=== PATIENT | male | born 1940 | race African-American/Black ===

== ENCOUNTER 2021-09-13 11:26 | Inpatient (IN) | payer OTHER ==
[2021-09-13] MEDS ORDERED: ACETAMINOPHEN 1000 MG/100 ML VIAL IVPB ONE (13:18)
[2021-09-13] MEDS ORDERED: ACETAMINOPHEN INJECTION 100 ML IVPB ONE (13:40)
[2021-09-13 14:17] LABS: BASO % 0.3 % (0-2.0); EOS % 0.1 % (0-4.5); HEMATOCRIT 31.8 % (35.4-49); HEMOGLOBIN 10.4 GM/dL (11.7-16.9); LYMPH % 5.7 % (8-40); MCH 29.1 pg (25.7-33.7); MCHC 32.8 g/dl (32.0-35.9); MEAN CELL VOLUME 88.9 fl (80-96); MEAN PLT VOLUME 8.7 fl (7.5-11.1); MONO % 5.4 % (3.8-10.2); NEUT % 88.5 % (42.8-82.8); PLATELET COUNT 320 10^3/uL (134-434); RBC 3.58 M/mm3 (4.00-5.60); RDW 19.1 % (11.9-15.9); WHITE BLOOD COUNT 14.1 K/mm3 (4.0-10.0)
[2021-09-13 14:19] LABS: VENOUS BASE EXCESS 2.7 mmol/L (-2-2); VENOUS O2 SATURATION 40.4 % (70-80); VENOUS PCO2 52.3 mmHg (38-52); VENOUS PH 7.361 (7.310-7.410)
[2021-09-13 14:34] LABS: INR 1.46 (0.83-1.09); PROTHROMBIN TIME (PATIENT) 16.4 SEC (9.7-13.0)
[2021-09-13 14:36] LABS: ACTIVATED PTT 31.5 SECONDS (25.2-36.5)
[2021-09-13 14:37] LABS: CHLORIDE 103 mmol/L (98-107); SODIUM 140 mmol/L (136-145)
[2021-09-13 14:39] LABS: MAGNESIUM 1.4 mg/dL (1.8-2.4)
[2021-09-13 14:40] LABS: ALBUMIN 2.1 g/dl (3.4-5.0); ANION GAP 10 MMOL/L (8-16); CALCIUM 9.2 mg/dL (8.5-10.1); CO2 27 mmol/L (21-32); GLUCOSE,RANDOM 146 mg/dL (74-106)
[2021-09-13 14:42] LABS: PHOSPHOROUS 3.1 mg/dL (2.5-4.9)
[2021-09-13 14:43] LABS: CREATININE 0.8 mg/dL (0.55-1.3); SGOT/AST 40 U/L (15-37); SGPT/ALT 23 U/L (13-61)
[2021-09-13 14:45] LABS: BILIRUBIN,TOTAL 0.7 mg/dL (0.2-1); TOT PROT 6.4 g/dl (6.4-8.2)
[2021-09-13 14:46] LABS: ALK PHOS 119 U/L (45-117)
[2021-09-13] MEDS ORDERED: SODIUM CHLORIDE 1,000 ML IV STA (14:47)
[2021-09-13 15:48] LABS: EPI CELLS 13 /uL (0-25.1); HYALINE CASTS 4 /uL (0-3.1); PH,URINE 5.5 (5.0-8.0); URINE APPEARANCE TURBID; URINE BACTERIA 8797 /uL (0-1359); URINE BILIRUBIN NEGATIVE (NEGATIVE); URINE COLOR DK YELLOW; URINE GLUCOSE (UA) NEGATIVE (NEGATIVE); URINE KETONE 1+ (NEGATIVE); URINE LEUK ESTERASE 2+ (NEGATIVE); URINE NITRITE POSITIVE (NEGATIVE); URINE PROTEIN 2+ (NEGATIVE); URINE RBC 995 /uL (0-23.9); URINE WBC 3322 /uL (0-25.8)
[2021-09-13 15:53] LABS: URINE AMPHETAMINES NEGATIVE (NEGATIVE)
[2021-09-13 16:10] LABS: COCAINE, UR NEGATIVE (NEGATIVE); URINE BARBITURATES NEGATIVE (NEGATIVE)
[2021-09-13 16:11] LABS: METHADONE, UR NEGATIVE (NEGATIVE)
[2021-09-13 16:13] LABS: PHENCYCLIDINE,URINE NEGATIVE (NEGATIVE)
[2021-09-13 16:16] LABS: ALBUMIN 1.9 g/dl (3.4-5.0); BLOOD UREA NITROGEN 17.8 mg/dL (7-18); CALCIUM 8.7 mg/dL (8.5-10.1); MAGNESIUM 1.9 mg/dL (1.8-2.4)
[2021-09-13] MEDS ORDERED: MAGNESIUM SULF 50% (8.12 MEQ/2 ML-1 GM VIAL) IVPB ONE (16:16)
[2021-09-13] MEDS ORDERED: CEFTRIAXONE 1,000 MG in DEXTROSE 5%-WATER - 50 ML IVPB ONE (16:16)
[2021-09-13 16:18] LABS: OPIATES, URI NEGATIVE (NEGATIVE); URINE BENZODIAZEPINES NEGATIVE (NEGATIVE)
[2021-09-13 16:19] LABS: CREATININE 0.8 mg/dL (0.55-1.3)
[2021-09-13 16:21] LABS: BILIRUBIN,TOTAL 0.6 mg/dL (0.2-1); TOT PROT 5.7 g/dl (6.4-8.2)
[2021-09-13] MEDS ORDERED: CEFTRIAXONE 1 GM/50 ML BAG ONE (17:15)
[2021-09-13] MEDS ORDERED: ENOXAPARIN NA (PORCINE) 100 MG/1 ML DISP.SYRIN SQ ONE (20:23)
[2021-09-13] MEDS ORDERED: ENOXAPARIN NA (PORCINE) 40 MG/0.4 ML DISP.SYRIN SQ ONE (21:43)
[2021-09-13] MEDS ORDERED: GABAPENTIN 100 MG CAPSULE ONE (22:24)
[2021-09-13] MEDS ORDERED: hydrALAZINE HCL 25 MG TABLET (FP) ONE (22:24)
[2021-09-13] MEDS: hydrALAZINE HCL 25 MG TABLET (FP) PO SCH (22:39)
[2021-09-13] MEDS: GABAPENTIN 100 MG CAPSULE PO SCH (22:39)
[2021-09-14] MEDS ORDERED: LABETALOL HCL 5 MG/1 ML (100MG/20 ML VIAL) IVPUSH ONE (02:22)
[2021-09-14] MEDS ORDERED: hydrALAZINE HCL 50 MG TABLET (FP) PO ONE (02:44)
[2021-09-14] MEDS ORDERED: hydrALAZINE HCL 25 MG TABLET (FP) ONE ×3 (02:54→15:18)
[2021-09-14] MEDS ORDERED: METOPROLOL TARTRATE 25 MG TABLET (FP) PO ONE (04:45)
[2021-09-14] MEDS ORDERED: METOPROLOL TARTRATE 25 MG TABLET (FP) ONE (04:53)
[2021-09-14] MEDS ORDERED: metFORMIN HCL 500 MG TABLET (FP) ONE (04:53)
[2021-09-14] MEDS ORDERED: GABAPENTIN 100 MG CAPSULE ONE ×2 (04:53→15:19)
[2021-09-14] MEDS: hydrALAZINE HCL 25 MG TABLET (FP) PO SCH ×3 (05:04→21:53)
[2021-09-14] MEDS: GABAPENTIN 100 MG CAPSULE PO SCH ×3 (05:04→21:53)
[2021-09-14] MEDS ORDERED: INSULIN SLIDING SCALE (NOVOLOG) 1 VIAL SQ SCH (07:00)
[2021-09-14] MEDS ORDERED: metFORMIN HCL 500 MG TABLET (FP) PO SCH (07:00)
[2021-09-14] MEDS: INSULIN SLIDING SCALE (NOVOLOG) 1 VIAL SQ SCH ×4 (09:00→21:52)
[2021-09-14] MEDS ORDERED: metoPROLOL SUCCINATE 25 MG TAB.SR.24H (FP) PO SCH (10:00)
[2021-09-14] MEDS: propRANOLol HCL 10 MG TABLET PO SCH ×3 (10:30→21:55)
[2021-09-14] MEDS: FAMOTIDINE 20 MG TABLET PO SCH (10:30)
[2021-09-14] MEDS: NIFEdipine E.R. 90 MG TABLET PO SCH (10:30)
[2021-09-14 10:31] LABS: HEMATOCRIT 31.3 % (35.4-49); HEMOGLOBIN 10.3 GM/dL (11.7-16.9); MCH 29.3 pg (25.7-33.7); MCHC 32.9 g/dl (32.0-35.9); MEAN PLT VOLUME 8.4 fl (7.5-11.1); PLATELET COUNT 304 10^3/uL (134-434); RBC 3.52 M/mm3 (4.00-5.60); RDW 18.7 % (11.9-15.9); WHITE BLOOD COUNT 10.8 K/mm3 (4.0-10.0)
[2021-09-14] MEDS: ENOXAPARIN NA (PORCINE) 100 MG/1 ML DISP.SYRIN SQ SCH ×2 (10:55→21:52)
[2021-09-14] MEDS: CEFTRIAXONE 1 GM in DEXTROSE 5%-WATER - 50 ML IVPB SCH (11:00)
[2021-09-14 11:06] LABS: CALCIUM 9.3 mg/dL (8.5-10.1)
[2021-09-14 11:07] LABS: BLOOD UREA NITROGEN 15.8 mg/dL (7-18)
[2021-09-14 11:10] LABS: CREATININE 0.8 mg/dL (0.55-1.3)
[2021-09-14 11:12] LABS: BILIRUBIN,TOTAL 0.5 mg/dL (0.2-1); TOT PROT 6.2 g/dl (6.4-8.2)
[2021-09-14] MEDS ORDERED: propRANOLol HCL 10 MG TABLET ONE (11:39)
[2021-09-14] MEDS ORDERED: NIFEdipine E.R. 30 MG TABLET ONE (11:39)
[2021-09-14] MEDS ORDERED: FAMOTIDINE 20 MG TABLET ONE (11:39)
[2021-09-14] MEDS ORDERED: ENOXAPARIN NA (PORCINE) 100 MG/1 ML DISP.SYRIN SQ ONE (11:40)
[2021-09-14] MEDS ORDERED: CEFTRIAXONE 1 GM/50 ML BAG ONE (11:40)
[2021-09-14 12:01] LABS: MAGNESIUM 1.8 mg/dL (1.8-2.4)
[2021-09-14] MEDS ORDERED: POTASSIUM CHLORIDE TABS 20 MEQ TABLET.ER (FP) PO ONE ×3 (13:09→16:11)
[2021-09-14] MEDS: ATORVASTATIN CA 20 MG TABLET (FP) PO SCH (21:53)
[2021-09-15] MEDS: propRANOLol HCL 10 MG TABLET PO SCH ×3 (06:21→21:39)
[2021-09-15] MEDS: GABAPENTIN 100 MG CAPSULE PO SCH ×3 (06:21→21:39)
[2021-09-15] MEDS: hydrALAZINE HCL 25 MG TABLET (FP) PO SCH ×3 (06:21→21:39)
[2021-09-15] MEDS: INSULIN SLIDING SCALE (NOVOLOG) 1 VIAL SQ SCH ×4 (06:29→21:40)
[2021-09-15 09:43] LABS: HEMATOCRIT 30.8 % (35.4-49); HEMOGLOBIN 10.1 GM/dL (11.7-16.9); MCHC 32.8 g/dl (32.0-35.9); MEAN CELL VOLUME 88.7 fl (80-96); MEAN PLT VOLUME 8.5 fl (7.5-11.1); PLATELET COUNT 291 10^3/uL (134-434); RBC 3.47 M/mm3 (4.00-5.60); RDW 18.8 % (11.9-15.9); WHITE BLOOD COUNT 9.1 K/mm3 (4.0-10.0)
[2021-09-15 09:50] LABS: BLOOD UREA NITROGEN 18.2 mg/dL (7-18); CALCIUM 8.7 mg/dL (8.5-10.1)
[2021-09-15 09:51] LABS: MAGNESIUM 1.8 mg/dL (1.8-2.4)
[2021-09-15 09:54] LABS: CREATININE 0.7 mg/dL (0.55-1.3)
[2021-09-15] MEDS ORDERED: cefTRIAXone SODIUM 1 GM VIAL ONE (10:03)
[2021-09-15] MEDS ORDERED: DEXTROSE 5%-WATER - 50 ML IVPB ONE (10:03)
[2021-09-15] MEDS: ENOXAPARIN NA (PORCINE) 100 MG/1 ML DISP.SYRIN SQ SCH ×2 (10:24→21:46)
[2021-09-15] MEDS: CEFTRIAXONE 1 GM in DEXTROSE 5%-WATER - 50 ML IVPB SCH (10:28)
[2021-09-15] MEDS: NIFEdipine E.R. 90 MG TABLET PO SCH (10:31)
[2021-09-15] MEDS: CLOPIDOGREL BISULFATE 75 MG TABLET (FP) PO SCH (10:31)
[2021-09-15] MEDS: FAMOTIDINE 20 MG TABLET PO SCH (10:31)
[2021-09-15] MEDS ORDERED: PT OWN MED DRAWER 7, Y5N ONE ×2 (14:04→21:20)
[2021-09-15] MEDS: METHIMAZOLE 10 MG TABLET PO SCH (14:06)
[2021-09-15] MEDS: POTASSIUM CHLORIDE TABS 20 MEQ TABLET.ER (FP) PO SCH ×2 (14:07→21:39)
[2021-09-15] MEDS ORDERED: VANCOMYCIN 1 GRAM (PRE-DOCKED) 1,000 MG/250 ML BAG IVPB ONE (17:27)
[2021-09-15] MEDS: SODIUM CHLORIDE 1,000 ML IV SCH (17:29)
[2021-09-15] MEDS: ACETAMINOPHEN 650 MG/20.3 ML ORAL SOLUTION (CUPS) PO PRN (17:30)
[2021-09-15 21:07] VITALS: BMI 24.8
[2021-09-15] MEDS: ATORVASTATIN CA 20 MG TABLET (FP) PO SCH (21:39)
[2021-09-16] MEDS: ZINC OXIDE/PANTHENOL/VITAMIN E 56 GM TUBE TP SCH ×2 (00:30→10:05)
[2021-09-16] MEDS ORDERED: PT OWN MED DRAWER 7, Y5N ONE ×6 (06:12→21:11)
[2021-09-16] MEDS: GABAPENTIN 100 MG CAPSULE PO SCH ×3 (06:14→21:43)
[2021-09-16] MEDS: hydrALAZINE HCL 25 MG TABLET (FP) PO SCH ×3 (06:14→21:43)
[2021-09-16] MEDS: propRANOLol HCL 10 MG TABLET PO SCH ×3 (06:14→21:43)
[2021-09-16] MEDS: INSULIN SLIDING SCALE (NOVOLOG) 1 VIAL SQ SCH ×4 (06:15→21:46)
[2021-09-16 07:51] LABS: HEMATOCRIT 31.2 % (35.4-49); HEMOGLOBIN 10.4 GM/dL (11.7-16.9); MCH 29.2 pg (25.7-33.7); MCHC 33.4 g/dl (32.0-35.9); MEAN CELL VOLUME 87.4 fl (80-96); MEAN PLT VOLUME 7.7 fl (7.5-11.1); PLATELET COUNT 303 10^3/uL (134-434); RBC 3.57 M/mm3 (4.00-5.60); RDW 18.4 % (11.9-15.9); WHITE BLOOD COUNT 7.1 K/mm3 (4.0-10.0)
[2021-09-16 08:35] LABS: ALBUMIN 1.8 g/dl (3.4-5.0); BLOOD UREA NITROGEN 17.3 mg/dL (7-18); CALCIUM 8.7 mg/dL (8.5-10.1)
[2021-09-16 08:36] LABS: MAGNESIUM 1.7 mg/dL (1.8-2.4)
[2021-09-16 08:38] LABS: CREATININE 0.7 mg/dL (0.55-1.3)
[2021-09-16 08:39] LABS: PHOSPHOROUS 2.9 mg/dL (2.5-4.9)
[2021-09-16 08:40] LABS: BILIRUBIN,TOTAL 0.3 mg/dL (0.2-1); TOT PROT 5.7 g/dl (6.4-8.2)
[2021-09-16] MEDS ORDERED: MAGNESIUM 2GM/50ML STERILE WATER IVPB IVPB ONE (09:22)
[2021-09-16] MEDS ORDERED: cefTRIAXone SODIUM 1 GM VIAL ONE (09:34)
[2021-09-16] MEDS ORDERED: DEXTROSE 5%-WATER - 50 ML IVPB ONE (09:35)
[2021-09-16] MEDS: SODIUM CHLORIDE 1,000 ML IV SCH ×2 (10:04→16:45)
[2021-09-16] MEDS: FAMOTIDINE 20 MG TABLET PO SCH (10:06)
[2021-09-16] MEDS: CLOPIDOGREL BISULFATE 75 MG TABLET (FP) PO SCH (10:06)
[2021-09-16] MEDS: ENOXAPARIN NA (PORCINE) 100 MG/1 ML DISP.SYRIN SQ SCH ×2 (10:06→21:43)
[2021-09-16] MEDS: METHIMAZOLE 10 MG TABLET PO SCH (10:07)
[2021-09-16] MEDS: CEFTRIAXONE 1 GM in DEXTROSE 5%-WATER - 50 ML IVPB SCH (10:07)
[2021-09-16] MEDS: NIFEdipine E.R. 90 MG TABLET PO SCH (10:07)
[2021-09-16] MEDS: ERTAPENEM SODIUM 1 GM in SODIUM CHLORIDE 50 ML IVPB SCH (15:22)
[2021-09-16] MEDS: ATORVASTATIN CA 20 MG TABLET (FP) PO SCH (21:43)
[2021-09-17] MEDS ORDERED: PT OWN MED DRAWER 7, Y5N ONE ×4 (06:11→21:20)
[2021-09-17] MEDS: INSULIN SLIDING SCALE (NOVOLOG) 1 VIAL SQ SCH ×4 (06:16→21:32)
[2021-09-17] MEDS: GABAPENTIN 100 MG CAPSULE PO SCH ×3 (06:40→21:31)
[2021-09-17] MEDS: propRANOLol HCL 10 MG TABLET PO SCH ×3 (06:40→21:31)
[2021-09-17] MEDS: hydrALAZINE HCL 25 MG TABLET (FP) PO SCH ×3 (06:40→21:31)
[2021-09-17] MEDS: ENOXAPARIN NA (PORCINE) 100 MG/1 ML DISP.SYRIN SQ SCH ×2 (09:38→21:32)
[2021-09-17] MEDS: METHIMAZOLE 10 MG TABLET PO SCH (09:39)
[2021-09-17] MEDS: FAMOTIDINE 20 MG TABLET PO SCH (09:39)
[2021-09-17] MEDS: CLOPIDOGREL BISULFATE 75 MG TABLET (FP) PO SCH (09:39)
[2021-09-17] MEDS: NIFEdipine E.R. 90 MG TABLET PO SCH (09:39)
[2021-09-17] MEDS: ZINC OXIDE/PANTHENOL/VITAMIN E 56 GM TUBE TP SCH (09:40)
[2021-09-17] MEDS: ERTAPENEM SODIUM 1 GM in SODIUM CHLORIDE 50 ML IVPB SCH (09:40)
[2021-09-17] MEDS: SODIUM CHLORIDE 1,000 ML IV SCH ×2 (14:14→16:49)
[2021-09-17] MEDS: ATORVASTATIN CA 20 MG TABLET (FP) PO SCH (21:31)
[2021-09-18] MEDS: SODIUM CHLORIDE 1,000 ML IV SCH ×2 (03:48→18:52)
[2021-09-18] MEDS: hydrALAZINE HCL 25 MG TABLET (FP) PO SCH ×3 (05:46→21:32)
[2021-09-18] MEDS: propRANOLol HCL 10 MG TABLET PO SCH ×3 (05:46→21:32)
[2021-09-18] MEDS: GABAPENTIN 100 MG CAPSULE PO SCH ×3 (05:47→21:32)
[2021-09-18] MEDS: INSULIN SLIDING SCALE (NOVOLOG) 1 VIAL SQ SCH ×4 (07:30→23:11)
[2021-09-18] MEDS ORDERED: PT OWN MED DRAWER 7, Y5N ONE ×4 (09:43→21:28)
[2021-09-18] MEDS: ENOXAPARIN NA (PORCINE) 100 MG/1 ML DISP.SYRIN SQ SCH ×2 (10:18→21:32)
[2021-09-18] MEDS: ZINC OXIDE/PANTHENOL/VITAMIN E 56 GM TUBE TP SCH (10:18)
[2021-09-18] MEDS: CLOPIDOGREL BISULFATE 75 MG TABLET (FP) PO SCH (10:19)
[2021-09-18] MEDS: FAMOTIDINE 20 MG TABLET PO SCH ×2 (10:19→10:28)
[2021-09-18] MEDS: NIFEdipine E.R. 90 MG TABLET PO SCH ×2 (10:19→10:28)
[2021-09-18] MEDS: METHIMAZOLE 10 MG TABLET PO SCH (10:19)
[2021-09-18] MEDS: ERTAPENEM SODIUM 1 GM in SODIUM CHLORIDE 50 ML IVPB SCH (13:54)
[2021-09-18] MEDS: AMINO ACIDS/PROTEIN HYDROLYS 30 ML LIQUID.PKT PO SCH (17:31)
[2021-09-18] MEDS: ATORVASTATIN CA 20 MG TABLET (FP) PO SCH (21:32)
[2021-09-19] MEDS ORDERED: LABETALOL HCL 5 MG/1 ML (100MG/20 ML VIAL) IVPUSH ONE ×2 (03:27→06:26)
[2021-09-19] MEDS: hydrALAZINE HCL 25 MG TABLET (FP) PO SCH ×3 (06:20→22:25)
[2021-09-19] MEDS: propRANOLol HCL 10 MG TABLET PO SCH ×3 (06:20→22:30)
[2021-09-19] MEDS: GABAPENTIN 100 MG CAPSULE PO SCH ×3 (06:21→22:30)
[2021-09-19] MEDS: INSULIN SLIDING SCALE (NOVOLOG) 1 VIAL SQ SCH ×4 (06:21→22:00)
[2021-09-19] MEDS: ENOXAPARIN NA (PORCINE) 100 MG/1 ML DISP.SYRIN SQ SCH ×2 (10:37→22:31)
[2021-09-19] MEDS: SODIUM CHLORIDE 1,000 ML IV SCH ×2 (10:37→17:14)
[2021-09-19] MEDS: ERTAPENEM SODIUM 1 GM in SODIUM CHLORIDE 50 ML IVPB SCH (10:38)
[2021-09-19] MEDS: MULTIVITAMINS (DAILY MVI) TABLET (FP) PO SCH (10:57)
[2021-09-19] MEDS: AMINO ACIDS/PROTEIN HYDROLYS 30 ML LIQUID.PKT PO SCH ×2 (10:57→17:42)
[2021-09-19] MEDS: ZINC OXIDE/PANTHENOL/VITAMIN E 56 GM TUBE TP SCH (10:57)
[2021-09-19] MEDS: ASCORBIC ACID 250 MG TABLET (FP) PO SCH (10:58)
[2021-09-19 11:41] LABS: HEMATOCRIT 29.8 % (35.4-49); HEMOGLOBIN 9.9 GM/dL (11.7-16.9); MCH 29.2 pg (25.7-33.7); MCHC 33.1 g/dl (32.0-35.9); MEAN CELL VOLUME 88.2 fl (80-96); MEAN PLT VOLUME 8.2 fl (7.5-11.1); PLATELET COUNT 266 10^3/uL (134-434); RBC 3.38 M/mm3 (4.00-5.60); RDW 18.2 % (11.9-15.9)
[2021-09-19 12:00] LABS: CALCIUM 8.7 mg/dL (8.5-10.1)
[2021-09-19 12:01] LABS: BLOOD UREA NITROGEN 9.6 mg/dL (7-18)
[2021-09-19 12:05] LABS: CREATININE 0.5 mg/dL (0.55-1.3); MAGNESIUM 1.5 mg/dL (1.8-2.4); PHOSPHOROUS 2.7 mg/dL (2.5-4.9)
[2021-09-19] MEDS: FAMOTIDINE 20 MG TABLET PO SCH (12:05)
[2021-09-19] MEDS: NIFEdipine E.R. 90 MG TABLET PO SCH (12:05)
[2021-09-19] MEDS: METHIMAZOLE 10 MG TABLET PO SCH (12:05)
[2021-09-19] MEDS: CLOPIDOGREL BISULFATE 75 MG TABLET (FP) PO SCH (12:05)
[2021-09-19] MEDS ORDERED: PT OWN MED DRAWER 7, Y5N ONE ×2 (14:54→22:28)
[2021-09-19] MEDS ORDERED: MAGNESIUM 2GM/50ML STERILE WATER IVPB IVPB ONE (19:32)
[2021-09-19] MEDS: ATORVASTATIN CA 20 MG TABLET (FP) PO SCH (22:30)
[2021-09-19] MEDS: ACETAMINOPHEN 650 MG/20.3 ML ORAL SOLUTION (CUPS) PO PRN (22:30)
[2021-09-19] MEDS: ENALAPRILAT DIHYDRATE 1.25 MG/1 ML VIAL IVPB SCH (22:31)
[2021-09-20] MEDS: ENALAPRILAT DIHYDRATE 1.25 MG/1 ML VIAL IVPB SCH ×4 (03:08→21:27)
[2021-09-20] MEDS ORDERED: PT OWN MED DRAWER 7, Y5N ONE ×5 (06:06→21:12)
[2021-09-20] MEDS: hydrALAZINE HCL 25 MG TABLET (FP) PO SCH ×3 (06:12→21:28)
[2021-09-20] MEDS: GABAPENTIN 100 MG CAPSULE PO SCH ×3 (06:12→21:29)
[2021-09-20] MEDS: propRANOLol HCL 10 MG TABLET PO SCH ×3 (06:12→21:29)
[2021-09-20] MEDS: INSULIN SLIDING SCALE (NOVOLOG) 1 VIAL SQ SCH ×4 (07:29→21:46)
[2021-09-20 07:42] LABS: HEMOGLOBIN 9.1 GM/dL (11.7-16.9); MCH 29.5 pg (25.7-33.7); MCHC 33.6 g/dl (32.0-35.9); MEAN CELL VOLUME 87.9 fl (80-96); MEAN PLT VOLUME 8.3 fl (7.5-11.1); PLATELET COUNT 255 10^3/uL (134-434); RBC 3.07 M/mm3 (4.00-5.60); RDW 18.1 % (11.9-15.9); WHITE BLOOD COUNT 6.6 K/mm3 (4.0-10.0)
[2021-09-20 07:54] LABS: ALBUMIN 1.9 g/dl (3.4-5.0); BLOOD UREA NITROGEN 9.5 mg/dL (7-18); CALCIUM 8.1 mg/dL (8.5-10.1)
[2021-09-20 07:55] LABS: MAGNESIUM 1.9 mg/dL (1.8-2.4)
[2021-09-20 07:57] LABS: CREATININE 0.7 mg/dL (0.55-1.3); PHOSPHOROUS 2.6 mg/dL (2.5-4.9)
[2021-09-20 07:58] LABS: BILIRUBIN,TOTAL 0.2 mg/dL (0.2-1); TOT PROT 5.2 g/dl (6.4-8.2)
[2021-09-20] MEDS: AMINO ACIDS/PROTEIN HYDROLYS 30 ML LIQUID.PKT PO SCH ×2 (08:00→17:05)
[2021-09-20] MEDS: ERTAPENEM SODIUM 1 GM in SODIUM CHLORIDE 50 ML IVPB SCH (09:10)
[2021-09-20] MEDS: ENOXAPARIN NA (PORCINE) 100 MG/1 ML DISP.SYRIN SQ SCH ×2 (09:10→21:47)
[2021-09-20] MEDS: NIFEdipine E.R. 90 MG TABLET PO SCH (09:15)
[2021-09-20] MEDS: FAMOTIDINE 20 MG TABLET PO SCH (09:16)
[2021-09-20] MEDS: CLOPIDOGREL BISULFATE 75 MG TABLET (FP) PO SCH (09:17)
[2021-09-20] MEDS: METHIMAZOLE 10 MG TABLET PO SCH (09:17)
[2021-09-20] MEDS: ZINC OXIDE/PANTHENOL/VITAMIN E 56 GM TUBE TP SCH (10:44)
[2021-09-20] MEDS: MULTIVITAMINS (DAILY MVI) TABLET (FP) PO SCH (10:45)
[2021-09-20] MEDS: ASCORBIC ACID 250 MG TABLET (FP) PO SCH (10:45)
[2021-09-20] MEDS: ACETAMINOPHEN 650 MG/20.3 ML ORAL SOLUTION (CUPS) PO PRN (14:35)
[2021-09-20] MEDS: ATORVASTATIN CA 20 MG TABLET (FP) PO SCH (21:28)
[2021-09-20] MEDS: SODIUM CHLORIDE 1,000 ML IV SCH (21:43)
[2021-09-21] MEDS: ENALAPRILAT DIHYDRATE 1.25 MG/1 ML VIAL IVPB SCH ×4 (02:23→22:06)
[2021-09-21] MEDS ORDERED: PT OWN MED DRAWER 7, Y5N ONE ×6 (06:01→22:03)
[2021-09-21] MEDS: GABAPENTIN 100 MG CAPSULE PO SCH ×3 (06:24→22:19)
[2021-09-21] MEDS: INSULIN SLIDING SCALE (NOVOLOG) 1 VIAL SQ SCH ×4 (06:24→22:19)
[2021-09-21] MEDS: hydrALAZINE HCL 25 MG TABLET (FP) PO SCH ×3 (06:24→22:19)
[2021-09-21] MEDS: propRANOLol HCL 10 MG TABLET PO SCH ×3 (06:24→22:19)
[2021-09-21 07:07] LABS: HEMATOCRIT 29.9 % (35.4-49); HEMOGLOBIN 10.1 GM/dL (11.7-16.9); MCH 29.4 pg (25.7-33.7); MCHC 33.7 g/dl (32.0-35.9); MEAN CELL VOLUME 87.4 fl (80-96); PLATELET COUNT 257 10^3/uL (134-434); RBC 3.42 M/mm3 (4.00-5.60); RDW 18.6 % (11.9-15.9); WHITE BLOOD COUNT 6.9 K/mm3 (4.0-10.0)
[2021-09-21 07:28] LABS: CALCIUM 8.3 mg/dL (8.5-10.1)
[2021-09-21 07:29] LABS: BLOOD UREA NITROGEN 8.4 mg/dL (7-18); MAGNESIUM 1.8 mg/dL (1.8-2.4)
[2021-09-21 07:32] LABS: CREATININE 0.6 mg/dL (0.55-1.3); PHOSPHOROUS 2.4 mg/dL (2.5-4.9)
[2021-09-21 07:33] LABS: BILIRUBIN,TOTAL 0.2 mg/dL (0.2-1)
[2021-09-21 07:34] LABS: TOT PROT 5.6 g/dl (6.4-8.2)
[2021-09-21] MEDS ORDERED: POTASSIUM CHLORIDE ORAL LIQUID 20 MEQ/15 ML PO ONE ×2 (07:47→08:30)
[2021-09-21] MEDS: AMINO ACIDS/PROTEIN HYDROLYS 30 ML LIQUID.PKT PO SCH ×2 (09:00→16:50)
[2021-09-21] MEDS: ZINC OXIDE/PANTHENOL/VITAMIN E 56 GM TUBE TP SCH (09:00)
[2021-09-21] MEDS: ENOXAPARIN NA (PORCINE) 100 MG/1 ML DISP.SYRIN SQ SCH ×2 (09:01→22:19)
[2021-09-21] MEDS: FAMOTIDINE 20 MG TABLET PO SCH (09:02)
[2021-09-21] MEDS: NIFEdipine E.R. 90 MG TABLET PO SCH (09:02)
[2021-09-21] MEDS: CLOPIDOGREL BISULFATE 75 MG TABLET (FP) PO SCH (09:02)
[2021-09-21] MEDS: MULTIVITAMINS (DAILY MVI) TABLET (FP) PO SCH (09:02)
[2021-09-21] MEDS: ASCORBIC ACID 250 MG TABLET (FP) PO SCH (09:03)
[2021-09-21] MEDS: METHIMAZOLE 10 MG TABLET PO SCH (09:03)
[2021-09-21] MEDS: ERTAPENEM SODIUM 1 GM in SODIUM CHLORIDE 50 ML IVPB SCH (09:46)
[2021-09-21] MEDS ORDERED: POTASSIUM PHOSPHATE 30 MM in DEXTROSE 5%-WATER - 500 ML IVPB ONE (10:00)
[2021-09-21] MEDS: KCL 10 MEQ IVPB 10 MEQ/100 ML INFUS.BAG IVPB SCH ×3 (15:01→18:18)
[2021-09-21] MEDS: ATORVASTATIN CA 20 MG TABLET (FP) PO SCH (22:19)
[2021-09-22] MEDS: ENALAPRILAT DIHYDRATE 1.25 MG/1 ML VIAL IVPB SCH ×4 (02:54→21:30)
[2021-09-22] MEDS ORDERED: PT OWN MED DRAWER 7, Y5N ONE ×4 (05:37→21:02)
[2021-09-22] MEDS: hydrALAZINE HCL 25 MG TABLET (FP) PO SCH ×3 (05:53→23:21)
[2021-09-22] MEDS: GABAPENTIN 100 MG CAPSULE PO SCH ×3 (05:53→23:22)
[2021-09-22] MEDS: ACETAMINOPHEN 650 MG/20.3 ML ORAL SOLUTION (CUPS) PO PRN (05:53)
[2021-09-22] MEDS: propRANOLol HCL 10 MG TABLET PO SCH ×3 (06:44→23:21)
[2021-09-22] MEDS: INSULIN SLIDING SCALE (NOVOLOG) 1 VIAL SQ SCH ×4 (07:00→23:22)
[2021-09-22 08:52] LABS: HEMOGLOBIN 8.5 GM/dL (11.7-16.9); MCH 29.7 pg (25.7-33.7); MCHC 33.9 g/dl (32.0-35.9); MEAN CELL VOLUME 87.8 fl (80-96); MEAN PLT VOLUME 8.3 fl (7.5-11.1); PLATELET COUNT 230 10^3/uL (134-434); RBC 2.85 M/mm3 (4.00-5.60); RDW 18.4 % (11.9-15.9)
[2021-09-22 09:22] LABS: CALCIUM 8.4 mg/dL (8.5-10.1)
[2021-09-22 09:23] LABS: BLOOD UREA NITROGEN 13.7 mg/dL (7-18); MAGNESIUM 1.7 mg/dL (1.8-2.4)
[2021-09-22 09:25] LABS: CREATININE 0.6 mg/dL (0.55-1.3)
[2021-09-22 09:26] LABS: PHOSPHOROUS 3.2 mg/dL (2.5-4.9)
[2021-09-22] MEDS: MULTIVITAMINS (DAILY MVI) TABLET (FP) PO SCH (09:36)
[2021-09-22] MEDS: AMINO ACIDS/PROTEIN HYDROLYS 30 ML LIQUID.PKT PO SCH ×2 (09:36→17:58)
[2021-09-22] MEDS: ENOXAPARIN NA (PORCINE) 100 MG/1 ML DISP.SYRIN SQ SCH ×2 (09:36→22:02)
[2021-09-22] MEDS: NIFEdipine E.R. 90 MG TABLET PO SCH (09:37)
[2021-09-22] MEDS: FAMOTIDINE 20 MG TABLET PO SCH (09:37)
[2021-09-22] MEDS: CLOPIDOGREL BISULFATE 75 MG TABLET (FP) PO SCH (09:37)
[2021-09-22] MEDS: METHIMAZOLE 10 MG TABLET PO SCH (09:46)
[2021-09-22] MEDS: ZINC OXIDE/PANTHENOL/VITAMIN E 56 GM TUBE TP SCH (09:46)
[2021-09-22] MEDS: ERTAPENEM SODIUM 1 GM in SODIUM CHLORIDE 50 ML IVPB SCH (10:35)
[2021-09-22] MEDS: ASCORBIC ACID 250 MG TABLET (FP) PO SCH (10:47)
[2021-09-22] MEDS ORDERED: MAGNESIUM 1GM/D5W 100ML - 100 ML IVPB IVPB ONE (13:00)
[2021-09-22] MEDS: ATORVASTATIN CA 20 MG TABLET (FP) PO SCH (23:21)
[2021-09-23] MEDS: ENALAPRILAT DIHYDRATE 1.25 MG/1 ML VIAL IVPB SCH ×4 (02:48→21:31)
[2021-09-23] MEDS: propRANOLol HCL 10 MG TABLET PO SCH ×3 (06:42→21:41)
[2021-09-23] MEDS: INSULIN SLIDING SCALE (NOVOLOG) 1 VIAL SQ SCH ×4 (06:42→21:45)
[2021-09-23] MEDS: hydrALAZINE HCL 25 MG TABLET (FP) PO SCH ×3 (06:42→21:41)
[2021-09-23] MEDS: GABAPENTIN 100 MG CAPSULE PO SCH ×3 (06:42→21:41)
[2021-09-23 07:44] LABS: HEMATOCRIT 25.4 % (35.4-49); HEMOGLOBIN 8.5 GM/dL (11.7-16.9); MCH 29.1 pg (25.7-33.7); MCHC 33.3 g/dl (32.0-35.9); MEAN CELL VOLUME 87.4 fl (80-96); MEAN PLT VOLUME 8.3 fl (7.5-11.1); PLATELET COUNT 254 10^3/uL (134-434); RBC 2.91 M/mm3 (4.00-5.60); RDW 18.3 % (11.9-15.9)
[2021-09-23 08:02] LABS: BLOOD UREA NITROGEN 13.6 mg/dL (7-18); CALCIUM 8.7 mg/dL (8.5-10.1); MAGNESIUM 1.9 mg/dL (1.8-2.4)
[2021-09-23 08:06] LABS: CREATININE 0.6 mg/dL (0.55-1.3); PHOSPHOROUS 2.8 mg/dL (2.5-4.9)
[2021-09-23] MEDS: AMINO ACIDS/PROTEIN HYDROLYS 30 ML LIQUID.PKT PO SCH ×2 (09:32→17:03)
[2021-09-23] MEDS: ENOXAPARIN NA (PORCINE) 100 MG/1 ML DISP.SYRIN SQ SCH ×2 (09:32→21:46)
[2021-09-23] MEDS: ZINC OXIDE/PANTHENOL/VITAMIN E 56 GM TUBE TP SCH (09:33)
[2021-09-23] MEDS ORDERED: LABETALOL HCL 5 MG/1 ML (100MG/20 ML VIAL) IVPUSH ONE (09:44)
[2021-09-23] MEDS: MULTIVITAMINS (DAILY MVI) TABLET (FP) PO SCH (10:14)
[2021-09-23] MEDS: NIFEdipine E.R. 90 MG TABLET PO SCH (10:14)
[2021-09-23] MEDS: CLOPIDOGREL BISULFATE 75 MG TABLET (FP) PO SCH (10:14)
[2021-09-23] MEDS: FAMOTIDINE 20 MG TABLET PO SCH (10:14)
[2021-09-23] MEDS: METHIMAZOLE 10 MG TABLET PO SCH (10:15)
[2021-09-23] MEDS: ASCORBIC ACID 250 MG TABLET (FP) PO SCH (10:15)
[2021-09-23] MEDS ORDERED: PT OWN MED DRAWER 7, Y5N ONE ×2 (17:40→21:08)
[2021-09-23] MEDS: ATORVASTATIN CA 20 MG TABLET (FP) PO SCH (21:41)
[2021-09-24] MEDS: ENALAPRILAT DIHYDRATE 1.25 MG/1 ML VIAL IVPB SCH ×3 (02:17→14:20)
[2021-09-24] MEDS ORDERED: PT OWN MED DRAWER 7, Y5N ONE ×3 (05:09→14:58)
[2021-09-24] MEDS: hydrALAZINE HCL 25 MG TABLET (FP) PO SCH ×3 (05:24→15:00)
[2021-09-24] MEDS: propRANOLol HCL 10 MG TABLET PO SCH ×3 (05:24→15:00)
[2021-09-24] MEDS: GABAPENTIN 100 MG CAPSULE PO SCH ×3 (05:24→14:59)
[2021-09-24] MEDS: INSULIN SLIDING SCALE (NOVOLOG) 1 VIAL SQ SCH ×3 (06:19→16:44)
[2021-09-24] MEDS: AMINO ACIDS/PROTEIN HYDROLYS 30 ML LIQUID.PKT PO SCH ×2 (08:48→16:45)
[2021-09-24] MEDS: MULTIVITAMINS (DAILY MVI) TABLET (FP) PO SCH ×2 (09:00→09:54)
[2021-09-24] MEDS: METHIMAZOLE 10 MG TABLET PO SCH ×2 (09:00→09:54)
[2021-09-24] MEDS: FAMOTIDINE 20 MG TABLET PO SCH ×2 (09:00→09:53)
[2021-09-24] MEDS: ASCORBIC ACID 250 MG TABLET (FP) PO SCH ×2 (09:00→09:54)
[2021-09-24] MEDS: CLOPIDOGREL BISULFATE 75 MG TABLET (FP) PO SCH ×2 (09:00→09:53)
[2021-09-24] MEDS: ENOXAPARIN NA (PORCINE) 100 MG/1 ML DISP.SYRIN SQ SCH (09:00)
[2021-09-24] MEDS: NIFEdipine E.R. 90 MG TABLET PO SCH ×2 (09:00→09:53)
[2021-09-24] MEDS: ZINC OXIDE/PANTHENOL/VITAMIN E 56 GM TUBE TP SCH (09:01)
[2021-09-24 22:31] VITALS: BP 138/85; PULSE 103; TEMP 97
== END 2021-09-24 20:50 | disposition home or self-care (01) | DRG 871 ==
LOC: JER 11:26 → INTOOBSV 13:18 → OBSVTOIN 13:18 → JERBED 13:18 → J4W 09-14 18:50 → J4S 09-17 11:55
PROVIDERS: ADMIT Internal Medicine; ATTEND Internal Medicine
DX: A41.89 Other specified sepsis (principal); G93.41 Metabolic encephalopathy; I63.9 Cerebral infarction, unspecified; N39.0 Urinary tract infection, site not specified; I82.411 Acute embolism and thrombosis of right femoral vein; L97.428 Non-pressure chronic ulcer of left heel and midfoot with other specified severity; L97.518 Non-pressure chronic ulcer of other part of right foot with other specified severity; I10 Essential (primary) hypertension; K21.9 Gastro-esophageal reflux disease without esophagitis; E78.5 Hyperlipidemia, unspecified; E11.9 Type 2 diabetes mellitus without complications; F03.90 Unspecified dementia, unspecified severity, without behavioral disturbance, psychotic disturbance, mood disturbance, and anxiety; E05.90 Thyrotoxicosis, unspecified without thyrotoxic crisis or storm; I16.0 Hypertensive urgency; R29.704 NIHSS score 4; M17.11 Unilateral primary osteoarthritis, right knee; I69.319 Unspecified symptoms and signs involving cognitive functions following cerebral infarction; D64.9 Anemia, unspecified; B96.20 Unspecified Escherichia coli [E. coli] as the cause of diseases classified elsewhere; L89.606 Pressure-induced deep tissue damage of unspecified heel; R63.0 Anorexia; T83.511A Infection and inflammatory reaction due to indwelling urethral catheter, initial encounter; Z68.24 Body mass index [BMI] 24.0-24.9, adult; Z74.01 Bed confinement status
CPT/HCPCS: 36415; 70450-TC; 70551-TC; 71045-TC-FY; 73562-TC-RT-FY; 80048; 80053; 80061; 80307; 81003; 82140; 82272; 82550; 82553; 82803; 82962; 83036; 83605; 83690; 83735; 84100; 84439; 84443; 84484; 85025; 85027; 85610; 85730; 87040; 87086; 87186; 93005; 93010; 93306-TC; 93880-TC; 93971-TC; 97162-GP; 99285-25; C9803; J0131; U0003; U0005

== ENCOUNTER 2021-10-20 10:13 | Inpatient (IN) | payer OTHER ==
[2021-10-20] MEDS ORDERED: SODIUM CHLORIDE 0.9% 500 ML INFUS.BAG IV ONE ×2 (11:04→11:10)
[2021-10-20 13:16] LABS: BASO % 0.2 % (0-2.0); EOS % 0.6 % (0-4.5); HEMATOCRIT 32.2 % (35.4-49); HEMOGLOBIN 10.6 GM/dL (11.7-16.9); LYMPH % 9.5 % (8-40); MCH 28.8 pg (25.7-33.7); MCHC 32.8 g/dl (32.0-35.9); MEAN CELL VOLUME 87.7 fl (80-96); MEAN PLT VOLUME 8.5 fl (7.5-11.1); MONO % 6.6 % (3.8-10.2); NEUT % 83.1 % (42.8-82.8); PLATELET COUNT 298 10^3/uL (134-434); RBC 3.67 M/mm3 (4.00-5.60); RDW 18.9 % (11.9-15.9); WHITE BLOOD COUNT 8.5 K/mm3 (4.0-10.0)
[2021-10-20 13:43] LABS: CHLORIDE 107 mmol/L (98-107); SODIUM 144 mmol/L (136-145)
[2021-10-20 13:45] LABS: BLOOD UREA NITROGEN 19.3 mg/dL (7-18); CALCIUM 9.1 mg/dL (8.5-10.1)
[2021-10-20 13:46] LABS: ANION GAP 8 MMOL/L (8-16); CO2 29 mmol/L (21-32); GLUCOSE,RANDOM 144 mg/dL (74-106)
[2021-10-20 13:48] LABS: SGPT/ALT 19 U/L (13-61)
[2021-10-20 13:49] LABS: CREATININE 0.8 mg/dL (0.55-1.3); SGOT/AST 18 U/L (15-37)
[2021-10-20 13:50] LABS: BILIRUBIN,TOTAL 0.4 mg/dL (0.2-1); TOT PROT 6.3 g/dl (6.4-8.2)
[2021-10-20 13:52] LABS: ALK PHOS 121 U/L (45-117)
[2021-10-20 18:20] LABS: EPI CELLS 7 /uL (0-25.1); HYALINE CASTS 4 /uL (0-3.1); URINE APPEARANCE CLEAR; URINE BACTERIA 1 /uL (0-1359); URINE BILIRUBIN NEGATIVE (NEGATIVE); URINE COLOR DK YELLOW; URINE GLUCOSE (UA) NEGATIVE (NEGATIVE); URINE KETONE TRACE (NEGATIVE); URINE LEUK ESTERASE NEGATIVE (NEGATIVE); URINE NITRITE NEGATIVE (NEGATIVE); URINE PROTEIN 1+ (NEGATIVE); URINE RBC 9 /uL (0-23.9); URINE WBC 6 /uL (0-25.8)
[2021-10-20 20:35] LABS: URINE CRYSTALS NONE SEEN /hpf
[2021-10-20] MEDS ORDERED: propRANOLol HCL 10 MG TABLET ONE (22:50)
[2021-10-20] MEDS ORDERED: ATORVASTATIN CA 20 MG TABLET (FP) ONE (22:50)
[2021-10-20] MEDS ORDERED: hydrALAZINE HCL 25 MG TABLET (FP) ONE (22:50)
[2021-10-20] MEDS ORDERED: APIXABAN 5 MG TABLET ONE (22:50)
[2021-10-20] MEDS: INSULIN SLIDING SCALE (NOVOLOG) 1 VIAL SQ SCH (22:56)
[2021-10-20] MEDS: ATORVASTATIN CA 20 MG TABLET (FP) PO SCH (23:04)
[2021-10-20] MEDS: hydrALAZINE HCL 25 MG TABLET (FP) PO SCH (23:04)
[2021-10-20] MEDS: APIXABAN 5 MG TABLET PO SCH (23:04)
[2021-10-20] MEDS: propRANOLol HCL 10 MG TABLET PO SCH (23:04)
[2021-10-21] MEDS ORDERED: dilTIAZem HCL 50 MG/10 ML - 10 ML VIAL IVPUSH ONE ×2 (01:24→01:25)
[2021-10-21] MEDS ORDERED: dilTIAZem HCL 125 MG/25 ML - 25 ML VIAL ONE (01:47)
[2021-10-21] MEDS ORDERED: propRANOLol HCL 10 MG TABLET ONE (06:45)
[2021-10-21] MEDS ORDERED: hydrALAZINE HCL 25 MG TABLET (FP) ONE (06:45)
[2021-10-21] MEDS: propRANOLol HCL 10 MG TABLET PO SCH (06:53)
[2021-10-21] MEDS: hydrALAZINE HCL 25 MG TABLET (FP) PO SCH ×3 (06:53→23:02)
[2021-10-21] MEDS ORDERED: NIFEdipine E.R. 30 MG TABLET ONE (08:22)
[2021-10-21] MEDS ORDERED: LABETALOL HCL 5 MG/1 ML (100MG/20 ML VIAL) ONE (08:32)
[2021-10-21] MEDS ORDERED: LABETALOL HCL 5 MG/1 ML (100MG/20 ML VIAL) IVPUSH ONE ×2 (08:32→12:43)
[2021-10-21] MEDS: INSULIN SLIDING SCALE (NOVOLOG) 1 VIAL SQ SCH ×4 (08:37→23:03)
[2021-10-21] MEDS ORDERED: APIXABAN 5 MG TABLET ONE (09:44)
[2021-10-21] MEDS ORDERED: CLOPIDOGREL BISULFATE 75 MG TABLET (FP) ONE (09:44)
[2021-10-21] MEDS: APIXABAN 5 MG TABLET PO SCH ×2 (09:54→23:02)
[2021-10-21] MEDS: METHIMAZOLE 10 MG TABLET PO SCH (09:55)
[2021-10-21] MEDS: CLOPIDOGREL BISULFATE 75 MG TABLET (FP) PO SCH (09:55)
[2021-10-21] MEDS ORDERED: PROPYLTHIOURACIL 50 MG TABLET (UD) PO SCH (10:00)
[2021-10-21] MEDS: NIFEdipine E.R. 90 MG TABLET PO SCH ×2 (11:00→11:15)
[2021-10-21 11:05] LABS: BASO % 0.3 % (0-2.0); EOS % 0.2 % (0-4.5); HEMATOCRIT 33.2 % (35.4-49); HEMOGLOBIN 10.9 GM/dL (11.7-16.9); LYMPH % 8.3 % (8-40); MCH 28.9 pg (25.7-33.7); MCHC 32.9 g/dl (32.0-35.9); MEAN CELL VOLUME 87.8 fl (80-96); MEAN PLT VOLUME 8.4 fl (7.5-11.1); MONO % 5.8 % (3.8-10.2); NEUT % 85.4 % (42.8-82.8); PLATELET COUNT 263 10^3/uL (134-434); RBC 3.78 M/mm3 (4.00-5.60); RDW 18.5 % (11.9-15.9); WHITE BLOOD COUNT 9.2 K/mm3 (4.0-10.0)
[2021-10-21 11:25] LABS: CALCIUM 9.3 mg/dL (8.5-10.1)
[2021-10-21 11:26] LABS: BLOOD UREA NITROGEN 18.2 mg/dL (7-18)
[2021-10-21 11:28] LABS: PHOSPHOROUS 3.6 mg/dL (2.5-4.9)
[2021-10-21 11:29] LABS: CREATININE 0.7 mg/dL (0.55-1.3)
[2021-10-21 11:30] LABS: BILIRUBIN,TOTAL 0.6 mg/dL (0.2-1); TOT PROT 6.4 g/dl (6.4-8.2)
[2021-10-21] MEDS ORDERED: LABETALOL HCL INJECTION 300 MG in SODIUM CHLORIDE 240 ML IVPB SCH (11:45)
[2021-10-21] MEDS ORDERED: LABETALOL HCL 5 MG/1 ML (100MG/20 ML VIAL) IVPUSH PRN (15:45)
[2021-10-21] MEDS ORDERED: MUPIROCIN 2% TOPICAL OINTMENT FOR DECOLONIZATION NS SCH (22:00)
[2021-10-21] MEDS ORDERED: CHLORHEXIDINE GLUCONATE 4% CLEANSER FOR DECOLONIZATION TP SCH ×2 (22:00)
[2021-10-21] MEDS ORDERED: PT OWN MED DRAWER 7, Y5N ONE (22:31)
[2021-10-21] MEDS: ATORVASTATIN CA 20 MG TABLET (FP) PO SCH (23:02)
[2021-10-21] MEDS: LABETALOL HCL 200 MG TABLET (FP) PO SCH (23:03)
[2021-10-22 03:06] VITALS: BMI 28.0
[2021-10-22] MEDS: hydrALAZINE HCL 25 MG TABLET (FP) PO SCH ×3 (05:52→21:51)
[2021-10-22] MEDS: LABETALOL HCL 200 MG TABLET (FP) PO SCH ×3 (05:52→21:51)
[2021-10-22] MEDS: INSULIN SLIDING SCALE (NOVOLOG) 1 VIAL SQ SCH ×4 (06:01→23:30)
[2021-10-22 07:10] LABS: BASO % 0.4 % (0-2.0); EOS % 0.4 % (0-4.5); HEMATOCRIT 31.8 % (35.4-49); HEMOGLOBIN 10.5 GM/dL (11.7-16.9); LYMPH % 6.2 % (8-40); MCH 28.9 pg (25.7-33.7); MEAN CELL VOLUME 87.6 fl (80-96); MONO % 5.3 % (3.8-10.2); NEUT % 87.7 % (42.8-82.8); PLATELET COUNT 250 10^3/uL (134-434); RBC 3.62 M/mm3 (4.00-5.60); RDW 18.8 % (11.9-15.9); WHITE BLOOD COUNT 10.4 K/mm3 (4.0-10.0)
[2021-10-22 07:32] LABS: CALCIUM 8.8 mg/dL (8.5-10.1)
[2021-10-22 07:33] LABS: ALBUMIN 1.9 g/dl (3.4-5.0); BLOOD UREA NITROGEN 24.6 mg/dL (7-18); MAGNESIUM 1.9 mg/dL (1.8-2.4)
[2021-10-22 07:36] LABS: CREATININE 0.8 mg/dL (0.55-1.3); PHOSPHOROUS 4.1 mg/dL (2.5-4.9)
[2021-10-22 07:37] LABS: BILIRUBIN,TOTAL 0.6 mg/dL (0.2-1); TOT PROT 6.1 g/dl (6.4-8.2)
[2021-10-22] MEDS: METHIMAZOLE 10 MG TABLET PO SCH (10:15)
[2021-10-22] MEDS: CLOPIDOGREL BISULFATE 75 MG TABLET (FP) PO SCH (10:15)
[2021-10-22] MEDS: NIFEdipine E.R. 90 MG TABLET PO SCH (10:15)
[2021-10-22] MEDS: APIXABAN 5 MG TABLET PO SCH ×2 (10:17→21:51)
[2021-10-22] MEDS: ATORVASTATIN CA 20 MG TABLET (FP) PO SCH (21:51)
[2021-10-23] MEDS: LABETALOL HCL 200 MG TABLET (FP) PO SCH ×3 (05:45→21:43)
[2021-10-23] MEDS: hydrALAZINE HCL 25 MG TABLET (FP) PO SCH ×3 (05:45→21:44)
[2021-10-23] MEDS: INSULIN SLIDING SCALE (NOVOLOG) 1 VIAL SQ SCH ×4 (06:12→21:56)
[2021-10-23 08:21] LABS: HEMATOCRIT 28.3 % (35.4-49); HEMOGLOBIN 9.4 GM/dL (11.7-16.9); MCH 29.1 pg (25.7-33.7); MCHC 33.3 g/dl (32.0-35.9); MEAN CELL VOLUME 87.2 fl (80-96); MEAN PLT VOLUME 8.6 fl (7.5-11.1); PLATELET COUNT 220 10^3/uL (134-434); RBC 3.24 M/mm3 (4.00-5.60); RDW 18.6 % (11.9-15.9)
[2021-10-23 08:46] LABS: CALCIUM 8.6 mg/dL (8.5-10.1)
[2021-10-23 08:47] LABS: ALBUMIN 1.8 g/dl (3.4-5.0); BLOOD UREA NITROGEN 26.6 mg/dL (7-18); MAGNESIUM 1.9 mg/dL (1.8-2.4)
[2021-10-23 08:49] LABS: CREATININE 0.8 mg/dL (0.55-1.3)
[2021-10-23 08:51] LABS: BILIRUBIN,TOTAL 0.4 mg/dL (0.2-1); TOT PROT 5.5 g/dl (6.4-8.2)
[2021-10-23] MEDS ORDERED: PT OWN MED DRAWER 7, Y5N ONE (09:20)
[2021-10-23] MEDS: APIXABAN 5 MG TABLET PO SCH ×3 (09:23→21:44)
[2021-10-23] MEDS: METHIMAZOLE 5 MG TABLET PO SCH ×2 (09:23→10:53)
[2021-10-23] MEDS: CLOPIDOGREL BISULFATE 75 MG TABLET (FP) PO SCH ×2 (09:23→10:53)
[2021-10-23] MEDS: NIFEdipine E.R. 90 MG TABLET PO SCH ×2 (09:23→10:54)
[2021-10-23] MEDS ORDERED: DONEPEZIL HCL 5 MG TABLET (FP) PO SCH (18:00)
[2021-10-23] MEDS: ATORVASTATIN CA 20 MG TABLET (FP) PO SCH (21:44)
[2021-10-24] MEDS: INSULIN SLIDING SCALE (NOVOLOG) 1 VIAL SQ SCH ×2 (07:03→12:37)
[2021-10-24] MEDS: LABETALOL HCL 200 MG TABLET (FP) PO SCH ×3 (07:03→13:59)
[2021-10-24] MEDS: hydrALAZINE HCL 25 MG TABLET (FP) PO SCH ×3 (07:03→13:59)
[2021-10-24] MEDS: CLOPIDOGREL BISULFATE 75 MG TABLET (FP) PO SCH (11:41)
[2021-10-24] MEDS: APIXABAN 5 MG TABLET PO SCH (11:44)
[2021-10-24] MEDS: METHIMAZOLE 5 MG TABLET PO SCH (11:44)
[2021-10-24] MEDS: NIFEdipine E.R. 90 MG TABLET PO SCH (11:44)
[2021-10-24] MEDS: MUPIROCIN 2% TOPICAL OINTMENT FOR DECOLONIZATION NS SCH ×2 (12:30→12:31)
[2021-10-24 13:57] VITALS: BP 118/81; PULSE 106; TEMP 97.8
[2021-10-24] MEDS ORDERED: VITAMIN B COMPLEX W/C COMBO TABLET (FP) PO SCH (14:00)
== END 2021-10-24 14:31 | disposition home or self-care (01) | DRG 643 ==
LOC: JER 10:13 → JERBED 14:45 → J4W 10-21 21:23
PROVIDERS: ADMIT Internal Medicine; ATTEND Internal Medicine
DX: E05.90 Thyrotoxicosis, unspecified without thyrotoxic crisis or storm (principal); R53.2 Functional quadriplegia; I16.9 Hypertensive crisis, unspecified; F03.91 Unspecified dementia, unspecified severity, with behavioral disturbance; E11.9 Type 2 diabetes mellitus without complications; L89.612 Pressure ulcer of right heel, stage 2; L89.622 Pressure ulcer of left heel, stage 2; E78.5 Hyperlipidemia, unspecified
CPT/HCPCS: 36415; 70450-TC; 71045-TC-FY; 80053; 81003; 82550; 82728; 82962; 83540; 83550; 83605; 83735; 84100; 84439; 84443; 84481; 84484; 85025; 85027; 87086; 93005; 93010; 97161-GP; 99285-25; C9803; U0003; U0005

== ENCOUNTER 2021-12-03 14:28 | Inpatient (IN) | payer OTHER ==
[2021-12-03] MEDS ORDERED: SODIUM CHLORIDE 0.9% 500 ML INFUS.BAG IV ONE ×2 (16:00→17:49)
[2021-12-03 16:48] LABS: BASO % 0.4 % (0-2.0); EOS % 0.1 % (0-4.5); HEMATOCRIT 34.6 % (35.4-49); HEMOGLOBIN 10.7 GM/dL (11.7-16.9); LYMPH % 7.5 % (8-40); MCH 26.9 pg (25.7-33.7); MEAN CELL VOLUME 86.8 fl (80-96); MEAN PLT VOLUME 8.4 fl (7.5-11.1); MONO % 4.8 % (3.8-10.2); NEUT % 87.2 % (42.8-82.8); PLATELET COUNT 387 10^3/uL (134-434); RBC 3.99 M/mm3 (4.00-5.60); RDW 19.2 % (11.9-15.9)
[2021-12-03 17:07] LABS: ACTIVATED PTT 37.8 SECONDS (25.2-36.5); INR 1.94 (0.83-1.09); PROTHROMBIN TIME (PATIENT) 22.5 SEC (9.7-13.0)
[2021-12-03 17:10] LABS: CHLORIDE 104 mmol/L (98-107); SODIUM 139 mmol/L (136-145)
[2021-12-03 17:12] LABS: ALBUMIN 2.4 g/dl (3.4-5.0); CALCIUM 9.5 mg/dL (8.5-10.1); CO2 26 mmol/L (21-32); GLUCOSE,RANDOM 148 mg/dL (74-106)
[2021-12-03] MEDS ORDERED: METHIMAZOLE 10 MG TABLET PO ONE (17:12)
[2021-12-03] MEDS ORDERED: propRANOLol HCL 10 MG TABLET PO ONE (17:12)
[2021-12-03 17:13] LABS: BLOOD UREA NITROGEN 21.4 mg/dL (7-18)
[2021-12-03] MEDS ORDERED: METHIMAZOLE 5 MG TABLET PO ONE (17:13)
[2021-12-03 17:15] LABS: CREATININE 1.1 mg/dL (0.55-1.3); SGOT/AST 55 U/L (15-37); SGPT/ALT 22 U/L (13-61)
[2021-12-03 17:17] LABS: LACTIC ACID 3.3 mmol/L (0.4-2.0)
[2021-12-03 17:18] LABS: BILIRUBIN,TOTAL 0.7 mg/dL (0.2-1); TOT PROT 7.2 g/dl (6.4-8.2)
[2021-12-03 17:19] LABS: ALK PHOS 103 U/L (45-117)
[2021-12-03 17:28] LABS: MAGNESIUM 2.2 mg/dL (1.8-2.4)
[2021-12-03 17:29] LABS: ANION GAP 10 MMOL/L (8-16)
[2021-12-03] MEDS ORDERED: propRANOLol HCL 10 MG TABLET ONE ×2 (17:30→17:52)
[2021-12-03] MEDS ORDERED: LABETALOL HCL 5 MG/1 ML (100MG/20 ML VIAL) IVPUSH ONE (17:47)
[2021-12-03] MEDS ORDERED: SODIUM CHLORIDE 1,000 ML IV STA (18:41)
[2021-12-03] MEDS ORDERED: SODIUM CHLORIDE 1,000 ML IV SCH (18:45)
[2021-12-03] MEDS ORDERED: PIPERACILLIN/TAZOB 3.375 GM 3.375 GM in DEXTROSE 5%-WATER - 50 ML IVPB SCH (18:45)
[2021-12-03] MEDS ORDERED: VANCOMYCIN 1 GM in D5W (PRE-DOCKED) 1,000 MG/250 ML IVPB SCH (19:00)
[2021-12-03] MEDS ORDERED: PIPERACILLIN/TAZOB 3.375 GM 3.375 GM/50 ML BAG IVPB ONE (19:27)
[2021-12-03] MEDS ORDERED: VANCOMYCIN 1 GRAM (PRE-DOCKED) 1,000 MG/250 ML BAG IVPB ONE (19:27)
[2021-12-03] MEDS: PIPERACILLIN/TAZOB 3.375 GM 3.375 GM in DEXTROSE 5%-WATER - 50 ML IVPB SCH (19:38)
[2021-12-03 19:50] LABS: BLOOD UREA NITROGEN 21.3 mg/dL (7-18); CREATININE 0.9 mg/dL (0.55-1.3)
[2021-12-03] MEDS ORDERED: hydrALAZINE HCL 25 MG TABLET (FP) ONE (20:53)
[2021-12-03] MEDS ORDERED: LABETALOL HCL 100 MG TABLET (FP) ONE (20:53)
[2021-12-03] MEDS ORDERED: APIXABAN 5 MG TABLET ONE (20:53)
[2021-12-03] MEDS ORDERED: ATORVASTATIN CA 20 MG TABLET (FP) ONE (20:53)
[2021-12-03] MEDS: INSULIN SLIDING SCALE (NOVOLOG) 1 VIAL SQ SCH (21:03)
[2021-12-03] MEDS: APIXABAN 5 MG TABLET PO SCH (21:07)
[2021-12-03] MEDS: hydrALAZINE HCL 25 MG TABLET (FP) PO SCH (21:07)
[2021-12-03] MEDS: LABETALOL HCL 200 MG TABLET (FP) PO SCH (21:07)
[2021-12-03] MEDS: ATORVASTATIN CA 20 MG TABLET (FP) PO SCH (21:07)
[2021-12-03 23:31] LABS: EPI CELLS 27 /uL (0-25.1); HYALINE CASTS 6 /uL (0-3.1); PH,URINE 5.5 (5.0-8.0); URINE APPEARANCE CLOUDY; URINE BACTERIA 24 /uL (0-1359); URINE BILIRUBIN NEGATIVE (NEGATIVE); URINE COLOR YELLOW; URINE GLUCOSE (UA) NEGATIVE (NEGATIVE); URINE KETONE NEGATIVE (NEGATIVE); URINE LEUK ESTERASE 2+ (NEGATIVE); URINE NITRITE NEGATIVE (NEGATIVE); URINE PROTEIN 1+ (NEGATIVE); URINE RBC 12 /uL (0-23.9); URINE UROBILINOGEN 0.2 mg/dL (0.2-1.0); URINE WBC 304 /uL (0-25.8)
[2021-12-04 00:54] LABS: LACTIC ACID 2.5 mmol/L (0.4-2.0)
[2021-12-04] MEDS: PIPERACILLIN/TAZOB 3.375 GM 3.375 GM in DEXTROSE 5%-WATER - 50 ML IVPB SCH ×2 (04:00→11:00)
[2021-12-04] MEDS ORDERED: DEXTROSE 5%-WATER - 50 ML IVPB ONE ×2 (04:03→10:26)
[2021-12-04] MEDS ORDERED: PIPERACILLIN/TAZOBACTAM 3.375 GM VIAL IVPB ONE ×2 (04:03→10:25)
[2021-12-04] MEDS: hydrALAZINE HCL 25 MG TABLET (FP) PO SCH ×3 (07:00→21:17)
[2021-12-04] MEDS: LABETALOL HCL 200 MG TABLET (FP) PO SCH ×3 (08:02→21:16)
[2021-12-04] MEDS: INSULIN SLIDING SCALE (NOVOLOG) 1 VIAL SQ SCH ×4 (08:02→21:17)
[2021-12-04] MEDS ORDERED: DONEPEZIL HCL 5 MG TABLET (FP) PO SCH (10:00)
[2021-12-04] MEDS ORDERED: NIFEdipine E.R. 90 MG TABLET PO SCH (10:00)
[2021-12-04] MEDS ORDERED: VANCOMYCIN 1 GM in D5W (PRE-DOCKED) 1,000 MG/250 ML IVPB SCH (10:00)
[2021-12-04] MEDS: CLOPIDOGREL BISULFATE 75 MG TABLET (FP) PO SCH (11:00)
[2021-12-04] MEDS: METHIMAZOLE 5 MG TABLET PO SCH (11:00)
[2021-12-04] MEDS: propRANOLol HCL 10 MG TABLET PO SCH ×3 (11:00→21:17)
[2021-12-04] MEDS: APIXABAN 5 MG TABLET PO SCH ×2 (11:00→21:16)
[2021-12-04] MEDS: SODIUM CHLORIDE 1,000 ML IV SCH ×2 (11:38→22:14)
[2021-12-04] MEDS: ERTAPENEM SODIUM 1 GM in SODIUM CHLORIDE 50 ML IVPB SCH ×2 (13:07→14:00)
[2021-12-04] MEDS: COLLAGENASE CLOSTRIDIUM HIST. 30 GRAMS TUBE TP SCH (13:08)
[2021-12-04] MEDS: DONEPEZIL HCL 5 MG TABLET (FP) PO SCH (21:17)
[2021-12-04] MEDS: ATORVASTATIN CA 20 MG TABLET (FP) PO SCH (21:17)
[2021-12-05] MEDS: LABETALOL HCL 200 MG TABLET (FP) PO SCH ×3 (05:17→22:23)
[2021-12-05] MEDS: hydrALAZINE HCL 25 MG TABLET (FP) PO SCH ×3 (05:17→22:23)
[2021-12-05] MEDS: propRANOLol HCL 10 MG TABLET PO SCH ×3 (05:18→23:00)
[2021-12-05] MEDS: INSULIN SLIDING SCALE (NOVOLOG) 1 VIAL SQ SCH ×4 (06:44→22:23)
[2021-12-05] MEDS: ERTAPENEM SODIUM 1 GM in SODIUM CHLORIDE 50 ML IVPB SCH (09:46)
[2021-12-05] MEDS: CLOPIDOGREL BISULFATE 75 MG TABLET (FP) PO SCH (09:55)
[2021-12-05] MEDS: METHIMAZOLE 5 MG TABLET PO SCH (09:55)
[2021-12-05] MEDS: APIXABAN 5 MG TABLET PO SCH ×2 (09:55→22:23)
[2021-12-05] MEDS: COLLAGENASE CLOSTRIDIUM HIST. 30 GRAMS TUBE TP SCH (09:56)
[2021-12-05] MEDS ORDERED: INSULIN (NOVOLOG) ASPART 100 UNITS/ML 10ML VIAL ONE (11:12)
[2021-12-05 11:45] LABS: HEMATOCRIT 30.1 % (35.4-49); HEMOGLOBIN 9.5 GM/dL (11.7-16.9); MCH 27.4 pg (25.7-33.7); MCHC 31.7 g/dl (32.0-35.9); MEAN CELL VOLUME 86.5 fl (80-96); PLATELET COUNT 293 10^3/uL (134-434); RBC 3.47 M/mm3 (4.00-5.60); RDW 19.4 % (11.9-15.9); WHITE BLOOD COUNT 9.6 K/mm3 (4.0-10.0)
[2021-12-05 12:13] LABS: CALCIUM 8.3 mg/dL (8.5-10.1)
[2021-12-05 12:14] LABS: BLOOD UREA NITROGEN 31.1 mg/dL (7-18); MAGNESIUM 1.9 mg/dL (1.8-2.4)
[2021-12-05 12:17] LABS: CREATININE 1.1 mg/dL (0.55-1.3); PHOSPHOROUS 4.4 mg/dL (2.5-4.9)
[2021-12-05 12:18] LABS: BILIRUBIN,TOTAL 0.4 mg/dL (0.2-1); TOT PROT 5.3 g/dl (6.4-8.2)
[2021-12-05] MEDS: DONEPEZIL HCL 5 MG TABLET (FP) PO SCH (22:23)
[2021-12-05] MEDS: ATORVASTATIN CA 20 MG TABLET (FP) PO SCH (22:23)
[2021-12-05] MEDS: ASCORBIC ACID 500 MG TABLET (FP) PO SCH (22:23)
[2021-12-06] MEDS: INSULIN SLIDING SCALE (NOVOLOG) 1 VIAL SQ SCH ×4 (06:14→22:25)
[2021-12-06] MEDS: LABETALOL HCL 200 MG TABLET (FP) PO SCH ×3 (06:15→22:23)
[2021-12-06] MEDS: hydrALAZINE HCL 25 MG TABLET (FP) PO SCH ×3 (06:15→22:23)
[2021-12-06] MEDS: propRANOLol HCL 10 MG TABLET PO SCH ×3 (06:15→22:29)
[2021-12-06] MEDS: METHIMAZOLE 5 MG TABLET PO SCH (10:46)
[2021-12-06] MEDS: APIXABAN 5 MG TABLET PO SCH ×2 (10:46→22:23)
[2021-12-06] MEDS: AMINO ACIDS/PROTEIN HYDROLYS 30 ML LIQUID.PKT PO SCH ×3 (10:46→17:29)
[2021-12-06] MEDS: CLOPIDOGREL BISULFATE 75 MG TABLET (FP) PO SCH (10:46)
[2021-12-06] MEDS: ERTAPENEM SODIUM 1 GM in SODIUM CHLORIDE 50 ML IVPB SCH (10:47)
[2021-12-06] MEDS: ASCORBIC ACID 500 MG TABLET (FP) PO SCH ×2 (10:47→22:29)
[2021-12-06] MEDS: ZINC SULFATE 220 MG CAPSULE (FP) PO SCH (10:47)
[2021-12-06] MEDS: MULTIVITAMINS (DAILY MVI) TABLET (FP) PO SCH (10:47)
[2021-12-06] MEDS: COLLAGENASE CLOSTRIDIUM HIST. 30 GRAMS TUBE TP SCH (10:47)
[2021-12-06 11:49] LABS: BASO % 0.2 % (0-2.0); EOS % 0.2 % (0-4.5); HEMATOCRIT 27.8 % (35.4-49); HEMOGLOBIN 8.8 GM/dL (11.7-16.9); LYMPH % 5.4 % (8-40); MCH 27.2 pg (25.7-33.7); MCHC 31.7 g/dl (32.0-35.9); MEAN CELL VOLUME 85.8 fl (80-96); MEAN PLT VOLUME 8.2 fl (7.5-11.1); MONO % 6.4 % (3.8-10.2); NEUT % 87.8 % (42.8-82.8); PLATELET COUNT 279 10^3/uL (134-434); RBC 3.24 M/mm3 (4.00-5.60); RDW 19.5 % (11.9-15.9); WHITE BLOOD COUNT 8.8 K/mm3 (4.0-10.0)
[2021-12-06 12:12] LABS: CALCIUM 8.2 mg/dL (8.5-10.1)
[2021-12-06 12:13] LABS: BLOOD UREA NITROGEN 32.4 mg/dL (7-18)
[2021-12-06] MEDS: ATORVASTATIN CA 20 MG TABLET (FP) PO SCH (22:23)
[2021-12-06] MEDS: DONEPEZIL HCL 5 MG TABLET (FP) PO SCH (22:29)
[2021-12-07] MEDS: LABETALOL HCL 200 MG TABLET (FP) PO SCH ×3 (05:40→22:21)
[2021-12-07] MEDS: hydrALAZINE HCL 25 MG TABLET (FP) PO SCH ×3 (05:40→22:21)
[2021-12-07] MEDS: propRANOLol HCL 10 MG TABLET PO SCH ×3 (05:40→22:21)
[2021-12-07] MEDS: INSULIN SLIDING SCALE (NOVOLOG) 1 VIAL SQ SCH ×4 (06:02→22:12)
[2021-12-07 09:10] LABS: HEMATOCRIT 25.4 % (35.4-49); HEMOGLOBIN 8.1 GM/dL (11.7-16.9); MCH 27.6 pg (25.7-33.7); MCHC 32.1 g/dl (32.0-35.9); MEAN CELL VOLUME 85.8 fl (80-96); MEAN PLT VOLUME 7.7 fl (7.5-11.1); PLATELET COUNT 241 10^3/uL (134-434); RBC 2.95 M/mm3 (4.00-5.60); RDW 19.7 % (11.9-15.9); WHITE BLOOD COUNT 6.9 K/mm3 (4.0-10.0)
[2021-12-07 09:32] LABS: BLOOD UREA NITROGEN 27.4 mg/dL (7-18); CALCIUM 8.6 mg/dL (8.5-10.1); MAGNESIUM 2.1 mg/dL (1.8-2.4)
[2021-12-07 09:33] LABS: ALBUMIN 1.9 g/dl (3.4-5.0)
[2021-12-07 09:36] LABS: CREATININE 0.8 mg/dL (0.55-1.3); PHOSPHOROUS 3.1 mg/dL (2.5-4.9)
[2021-12-07 09:37] LABS: BILIRUBIN,TOTAL 0.5 mg/dL (0.2-1); TOT PROT 5.1 g/dl (6.4-8.2)
[2021-12-07] MEDS: ERTAPENEM SODIUM 1 GM in SODIUM CHLORIDE 50 ML IVPB SCH (09:40)
[2021-12-07] MEDS: APIXABAN 5 MG TABLET PO SCH ×4 (09:41→22:21)
[2021-12-07] MEDS: AMINO ACIDS/PROTEIN HYDROLYS 30 ML LIQUID.PKT PO SCH ×3 (09:41→16:56)
[2021-12-07] MEDS: ZINC SULFATE 220 MG CAPSULE (FP) PO SCH (09:41)
[2021-12-07] MEDS: MULTIVITAMINS (DAILY MVI) TABLET (FP) PO SCH (09:41)
[2021-12-07] MEDS: ASCORBIC ACID 500 MG TABLET (FP) PO SCH ×2 (09:42→22:21)
[2021-12-07] MEDS: CLOPIDOGREL BISULFATE 75 MG TABLET (FP) PO SCH ×2 (09:42→11:08)
[2021-12-07] MEDS: METHIMAZOLE 5 MG TABLET PO SCH (09:43)
[2021-12-07] MEDS: ACETAMINOPHEN 325 MG TABLET (FP) PO PRN (11:03)
[2021-12-07] MEDS: COLLAGENASE CLOSTRIDIUM HIST. 30 GRAMS TUBE TP SCH (11:31)
[2021-12-07] MEDS: DONEPEZIL HCL 5 MG TABLET (FP) PO SCH (22:21)
[2021-12-07] MEDS: ATORVASTATIN CA 20 MG TABLET (FP) PO SCH (22:21)
[2021-12-08] MEDS: LABETALOL HCL 200 MG TABLET (FP) PO SCH ×4 (07:04→22:42)
[2021-12-08] MEDS: hydrALAZINE HCL 25 MG TABLET (FP) PO SCH ×4 (07:04→22:40)
[2021-12-08] MEDS: propRANOLol HCL 10 MG TABLET PO SCH ×2 (07:04→13:35)
[2021-12-08] MEDS: INSULIN SLIDING SCALE (NOVOLOG) 1 VIAL SQ SCH ×4 (07:11→22:40)
[2021-12-08] MEDS ORDERED: ACETAMINOPHEN 1000 MG/100 ML BAG IVPB ONE (08:15)
[2021-12-08] MEDS: METHIMAZOLE 5 MG TABLET PO SCH (10:26)
[2021-12-08] MEDS: ASCORBIC ACID 500 MG TABLET (FP) PO SCH ×3 (10:26→22:42)
[2021-12-08] MEDS: MULTIVITAMINS (DAILY MVI) TABLET (FP) PO SCH (10:26)
[2021-12-08] MEDS: CLOPIDOGREL BISULFATE 75 MG TABLET (FP) PO SCH (10:26)
[2021-12-08] MEDS: APIXABAN 5 MG TABLET PO SCH ×3 (10:26→22:42)
[2021-12-08] MEDS: AMINO ACIDS/PROTEIN HYDROLYS 30 ML LIQUID.PKT PO SCH ×3 (10:26→17:39)
[2021-12-08] MEDS: ZINC SULFATE 220 MG CAPSULE (FP) PO SCH (10:26)
[2021-12-08] MEDS: ERTAPENEM SODIUM 1 GM in SODIUM CHLORIDE 50 ML IVPB SCH (10:27)
[2021-12-08] MEDS: COLLAGENASE CLOSTRIDIUM HIST. 30 GRAMS TUBE TP SCH (10:27)
[2021-12-08] MEDS ORDERED: ACETAMINOPHEN 1000 MG/100 ML BAG IVPB PRN (15:24)
[2021-12-08] MEDS: ATORVASTATIN CA 20 MG TABLET (FP) PO SCH ×2 (22:32→22:41)
[2021-12-08] MEDS: FERROUS SO4 325 MG TABLET (FP) PO SCH ×2 (22:33→22:41)
[2021-12-08] MEDS: DONEPEZIL HCL 5 MG TABLET (FP) PO SCH ×2 (22:33→22:42)
[2021-12-09] MEDS: hydrALAZINE HCL 25 MG TABLET (FP) PO SCH ×4 (06:56→23:33)
[2021-12-09] MEDS: LABETALOL HCL 200 MG TABLET (FP) PO SCH ×4 (06:57→23:33)
[2021-12-09] MEDS: INSULIN SLIDING SCALE (NOVOLOG) 1 VIAL SQ SCH ×4 (06:59→23:32)
[2021-12-09] MEDS: AMINO ACIDS/PROTEIN HYDROLYS 30 ML LIQUID.PKT PO SCH ×3 (08:59→17:25)
[2021-12-09] MEDS ORDERED: INSULIN (NOVOLOG) ASPART 100 UNITS/ML 10ML VIAL ONE (11:27)
[2021-12-09 12:12] LABS: HEMATOCRIT 27.3 % (35.4-49); HEMOGLOBIN 8.9 GM/dL (11.7-16.9); MCH 28.1 pg (25.7-33.7); MCHC 32.5 g/dl (32.0-35.9); MEAN CELL VOLUME 86.3 fl (80-96); PLATELET COUNT 257 10^3/uL (134-434); RBC 3.16 M/mm3 (4.00-5.60); RDW 19.7 % (11.9-15.9); WHITE BLOOD COUNT 5.4 K/mm3 (4.0-10.0)
[2021-12-09 12:44] LABS: CALCIUM 8.6 mg/dL (8.5-10.1)
[2021-12-09 12:45] LABS: BLOOD UREA NITROGEN 22.6 mg/dL (7-18); MAGNESIUM 2.1 mg/dL (1.8-2.4)
[2021-12-09 12:48] LABS: CREATININE 0.7 mg/dL (0.55-1.3); PHOSPHOROUS 2.7 mg/dL (2.5-4.9)
[2021-12-09 12:49] LABS: BILIRUBIN,TOTAL 0.3 mg/dL (0.2-1)
[2021-12-09 12:50] LABS: TOT PROT 5.4 g/dl (6.4-8.2)
[2021-12-09] MEDS: FERROUS SO4 325 MG TABLET (FP) PO SCH ×3 (13:00→23:34)
[2021-12-09] MEDS: CLOPIDOGREL BISULFATE 75 MG TABLET (FP) PO SCH (13:00)
[2021-12-09] MEDS: METHIMAZOLE 5 MG TABLET PO SCH (13:00)
[2021-12-09] MEDS: POLYETHYLENE GLYCOL (HEALTHYLAX) 3350 17 GM PACKET PO SCH (13:00)
[2021-12-09] MEDS: ZINC SULFATE 220 MG CAPSULE (FP) PO SCH (13:01)
[2021-12-09] MEDS: APIXABAN 5 MG TABLET PO SCH ×2 (13:01→23:11)
[2021-12-09] MEDS: MULTIVITAMINS (DAILY MVI) TABLET (FP) PO SCH (13:01)
[2021-12-09] MEDS: ERTAPENEM SODIUM 1 GM in SODIUM CHLORIDE 50 ML IVPB SCH (13:01)
[2021-12-09] MEDS: COLLAGENASE CLOSTRIDIUM HIST. 30 GRAMS TUBE TP SCH (13:01)
[2021-12-09] MEDS: ASCORBIC ACID 500 MG TABLET (FP) PO SCH ×3 (13:02→23:36)
[2021-12-09] MEDS: DONEPEZIL HCL 5 MG TABLET (FP) PO SCH ×2 (23:11→23:35)
[2021-12-09] MEDS: ATORVASTATIN CA 20 MG TABLET (FP) PO SCH ×2 (23:12→23:36)
[2021-12-09 23:54] VITALS: BMI 24.7
[2021-12-10] MEDS: hydrALAZINE HCL 25 MG TABLET (FP) PO SCH ×2 (06:26→22:55)
[2021-12-10] MEDS: LABETALOL HCL 200 MG TABLET (FP) PO SCH ×2 (06:26→22:55)
[2021-12-10] MEDS: INSULIN SLIDING SCALE (NOVOLOG) 1 VIAL SQ SCH ×3 (06:36→23:05)
[2021-12-10] MEDS: AMINO ACIDS/PROTEIN HYDROLYS 30 ML LIQUID.PKT PO SCH ×3 (08:31→12:50)
[2021-12-10] MEDS: ASCORBIC ACID 500 MG TABLET (FP) PO SCH ×3 (12:33→22:55)
[2021-12-10] MEDS: APIXABAN 5 MG TABLET PO SCH ×3 (12:33→22:51)
[2021-12-10] MEDS: ZINC SULFATE 220 MG CAPSULE (FP) PO SCH ×2 (12:33→12:54)
[2021-12-10] MEDS: METHIMAZOLE 5 MG TABLET PO SCH ×2 (12:33→12:54)
[2021-12-10] MEDS: ERTAPENEM SODIUM 1 GM in SODIUM CHLORIDE 50 ML IVPB SCH ×2 (12:33→12:53)
[2021-12-10] MEDS: CLOPIDOGREL BISULFATE 75 MG TABLET (FP) PO SCH ×2 (12:33→12:54)
[2021-12-10] MEDS: MULTIVITAMINS (DAILY MVI) TABLET (FP) PO SCH ×2 (12:33→12:54)
[2021-12-10] MEDS: POLYETHYLENE GLYCOL (HEALTHYLAX) 3350 17 GM PACKET PO SCH ×2 (12:34→12:53)
[2021-12-10] MEDS: COLLAGENASE CLOSTRIDIUM HIST. 30 GRAMS TUBE TP SCH (12:34)
[2021-12-10] MEDS: FERROUS SO4 325 MG TABLET (FP) PO SCH ×3 (12:35→22:55)
[2021-12-10] MEDS: DONEPEZIL HCL 5 MG TABLET (FP) PO SCH (22:51)
[2021-12-10] MEDS: ATORVASTATIN CA 20 MG TABLET (FP) PO SCH (22:55)
[2021-12-11] MEDS: hydrALAZINE HCL 25 MG TABLET (FP) PO SCH ×3 (07:03→15:16)
[2021-12-11] MEDS: LABETALOL HCL 200 MG TABLET (FP) PO SCH ×3 (07:03→15:16)
[2021-12-11] MEDS: INSULIN SLIDING SCALE (NOVOLOG) 1 VIAL SQ SCH ×4 (07:04→17:24)
[2021-12-11] MEDS: AMINO ACIDS/PROTEIN HYDROLYS 30 ML LIQUID.PKT PO SCH ×4 (07:23→17:24)
[2021-12-11] MEDS: POLYETHYLENE GLYCOL (HEALTHYLAX) 3350 17 GM PACKET PO SCH (09:50)
[2021-12-11] MEDS: MULTIVITAMINS (DAILY MVI) TABLET (FP) PO SCH (09:50)
[2021-12-11] MEDS: ZINC SULFATE 220 MG CAPSULE (FP) PO SCH (09:50)
[2021-12-11] MEDS: ASCORBIC ACID 500 MG TABLET (FP) PO SCH (09:50)
[2021-12-11] MEDS: FERROUS SO4 325 MG TABLET (FP) PO SCH (09:50)
[2021-12-11] MEDS: CLOPIDOGREL BISULFATE 75 MG TABLET (FP) PO SCH (09:50)
[2021-12-11] MEDS: APIXABAN 5 MG TABLET PO SCH (09:51)
[2021-12-11] MEDS: METHIMAZOLE 5 MG TABLET PO SCH (09:51)
[2021-12-11] MEDS ORDERED: SODIUM HYPOCHLORITE 0.5% 473 ML- BULK BOTTLE TP SCH (10:00)
[2021-12-11] MEDS ORDERED: SILVER SULFADIAZINE 1% TOP CREAM 50 GM JAR TP SCH (10:00)
[2021-12-11 15:17] VITALS: BP 131/89; PULSE 106; TEMP 97.6
[2021-12-11] MEDS: ACETAMINOPHEN 325 MG TABLET (FP) PO PRN (17:24)
== END 2021-12-11 18:48 | DRG 853 ==
LOC: JER 14:28 → JERBED 18:26 → J6WEST-2 12-04 03:16 → J6S 12-04 15:25
PROVIDERS: ADMIT Internal Medicine; ATTEND Internal Medicine
PROC: 0QD10ZZ Extraction of Sacrum, Open Approach (ICD-10-PCS; principal; 2021-12-07)
DX: A41.81 Sepsis due to Enterococcus (principal); L89.154 Pressure ulcer of sacral region, stage 4; L97.419 Non-pressure chronic ulcer of right heel and midfoot with unspecified severity; L97.909 Non-pressure chronic ulcer of unspecified part of unspecified lower leg with unspecified severity; M46.28 Osteomyelitis of vertebra, sacral and sacrococcygeal region; E87.2 Acidosis; I47.2 Ventricular tachycardia; L03.818 Cellulitis of other sites; E03.9 Hypothyroidism, unspecified; K21.9 Gastro-esophageal reflux disease without esophagitis; I10 Essential (primary) hypertension; E86.0 Dehydration; E11.621 Type 2 diabetes mellitus with foot ulcer; M17.0 Bilateral primary osteoarthritis of knee; M25.462 Effusion, left knee; M25.461 Effusion, right knee; F03.90 Unspecified dementia, unspecified severity, without behavioral disturbance, psychotic disturbance, mood disturbance, and anxiety; D50.9 Iron deficiency anemia, unspecified; E11.69 Type 2 diabetes mellitus with other specified complication; B96.4 Proteus (mirabilis) (morganii) as the cause of diseases classified elsewhere; Z86.718 Personal history of other venous thrombosis and embolism; Z86.19 Personal history of other infectious and parasitic diseases; Z66 Do not resuscitate; Z74.01 Bed confinement status
CPT/HCPCS: 36415; 72192-TC; 72195-TC; 73562-TC-LT-FY; 80048; 80053; 81003; 82728; 82962; 83540; 83550; 83605; 83735; 84100; 84439; 84443; 84484; 85025; 85027; 85610; 85651; 85730; 86140; 87040; 87070; 87075; 87076; 87086; 87186; 87205; 93005; 93010; 97162-GP; 99285-25; C9803; J0131; U0003; U0005